=== PATIENT | female | born 1985 | race African-American/Black ===

== ENCOUNTER 2017-03-05 14:44 | Emergency (ER) | payer OTHER ==
[~2017-03-05] VITALS: Ht 154.9 cm; Wt 65.8 kg
[2017-03-05 15:27] LABS: HEMATOCRIT 39.6 % (37.0-47.0); HEMOGLOBIN 13.9 gm/dL (12.0-15.0); MCH 30.5 pg (26.0-34.0); MCHC 35.2 g/dL (28.0-37.0); MCV 86.7 fL (80.0-100.0); PLATELET COUNT 259 thou/uL (150-400); RBC 4.57 mil/uL (4.20-5.00); RDW 12.9 % (10.5-14.5); WBC 14.5 thou/uL (4.0-11.0)
[2017-03-05 15:34] LABS: MANUAL DIFF YES
[2017-03-05 15:36] LABS: ANION GAP 9 mmol/L (7-16); BUN 13 mg/dL (7-18); CALCIUM 8.3 mg/dL (8.5-10.1); CHLORIDE 100 mmol/L (98-107); CO2 26 mmol/L (21-32); CREATININE 0.6 mg/dL (0.6-1.0); GLUCOSE 105 mg/dL (74-106); POTASSIUM 3.4 mmol/L (3.5-5.1); SODIUM 135 mmol/L (136-145)
[2017-03-05 15:43] LABS: ALBUMIN 3.5 g/dL (3.4-5.0); ALKALINE PHOSPHATASE 75 U/L (46-116); SGOT 18 U/L (15-37); SGPT 20 U/L (30-65); TOTAL PROTEIN 7.6 g/dL (6.4-8.2); TROPONIN-I < 0.04 ng/mL (<0.04-0.07)
[2017-03-05 16:02] LABS: ABSOLUTE NEUTROPHILS 13.1 thou/uL (1.4-8.2); ANISOCYTOSIS 1+; POLYCHROMASIA OCCASIONAL; TOTAL CELL COUNT 100
[2017-03-05 16:16] LABS: URINE BILIRUBIN NEGATIVE (Negative); URINE BLOOD NEGATIVE (Negative); URINE COLOR YELLOW; URINE GLUCOSE-RANDOM* NEGATIVE (Negative); URINE KETONES 2+ (Negative); URINE NITRITE NEGATIVE (Negative); URINE PROTEIN (DIPSTICK) NEGATIVE (Negative); URINE SPECIFIC GRAVITY 1.015 (1.003-1.035)
[2017-03-05] MEDS ORDERED: LEVSIN0.125 MG PO (16:25)
[2017-03-05] MEDS ORDERED: PHENERGAN 25 MG25 M1 PO (16:25)
[2017-03-05 16:39] VITALS: BP 114/73
== END 2017-03-05 16:43 | disposition home or self-care (01) ==
LOC: ER 14:44
PROVIDERS: Physician Assistant
DX: R11.2 Nausea with vomiting, unspecified (principal); R10.9 Unspecified abdominal pain